=== PATIENT | female | born 1990 | race Caucasian/White ===

== ENCOUNTER 2021-01-09 07:37 | Emergency (ER) | payer MEDICAID, SELFPAY ==
[2021-01-09 07:42] VITALS: BP 146/72; PULSE 78; RESP 16; TEMP 36.1; O2SAT 98; BMI 41.8
--- NOTE | 2021-01-09 08:06 | ED.GENADULT ---
HPI - General Adult General Chief complaint: General Medical <AJ Rosales Last Filed: 01/09/21 08:08> Stated complaint: needs ring removed <AJ Rosales Last Filed: 01/09/21 08:08> Time Seen by Provider: 01/09/21 08:02 <AJ Rosales Last Filed: 01/09/21 08:08> Source: patient <AJ Rosales Last Filed: 01/09/21 08:08> Mode of arrival: ambulatory <AJ Rosales Last Filed: 01/09/21 08:08> History of Present Illness HPI narrative: 30-year-old female with a past medical history of asthma presenting to the ED c/o left middle finger swelling since this morning and inability to remove ring from finger. Denies fever, chills, numbness, tingling, weakness <AJ Rosales Last Filed: 01/09/21 08:08> Onset (ago): hour(s) <AJ Rosales Last Filed: 01/09/21 08:08> Related Data Allergies/adverse reactions: Allergies Allergy/AdvReac Type Severity Reaction Status Date / Time ENVIROMENTAL Allergy Unknown STUFFY Uncoded 05/24/20 16:16 NOSE, SNEEZING environmental Allergy Unknown Uncoded 06/27/19 00:00 shell fish Allergy Unknown Uncoded 06/27/19 00:00 SHELLFISH Allergy Unknown DIFFICULTY Uncoded 05/24/20 16:16 BREATHING <AJ Rosales Last Filed: 01/09/21 08:08> Review of Systems Review of Systems: Constitutional: No Fever, No Chills Musculoskeletal: + joint pain, No Myalgias, + Joint Swelling Skin: No Skin Lesions, No rash Neuro: No Weakness, No Numbness, No Paresthesias <AJ Rosales Last Filed: 01/09/21 08:08> Yes all other systems are reviewed and are negative <AJ Rosales Last Filed: 01/09/21 08:08> [facility] Past Medical History Attestation statement: The following information was validated with the patient. <AJ Rosales Last Filed: 01/09/21 08:08> Medical History: Medical History (Updated 01/10/21 @ 00:01 by Isamar Villanueva) Asthma delivery delivered Seasonal allergies <AJ Rosales - Last Filed: 01/09/21 08:08> Social History Social History: Social History Alcohol intake: current Alcohol intake frequency: a few times a month Alcohol type: beer Smoked in Last 30 Days: No Use of substances other than those prescribed or required for medical reasons: No Advance Directives: No Advance Directives Information Provided: No Patient : No <AJ Rosales - Last Filed: 01/09/21 08:08> Physical Exam Vital Signs: Vital Signs: Last Vital Signs Temp 97.0 F 01/09/21 07:42 Pulse 78 01/09/21 07:42 Resp 16 01/09/21 07:42 BP 146/72 H 01/09/21 07:42 Pulse Ox 98 01/09/21 07:42 Body Mass Index 41.8 <AJ Rosales - Last Filed: 01/09/21 08:08> Vital Signs: Last Vital Signs Temp 97.0 F 01/09/21 07:42 Pulse 78 01/09/21 07:42 Resp 16 01/09/21 07:42 BP 146/72 H 01/09/21 07:42 Pulse Ox 98 01/09/21 07:42 Body Mass Index 41.8 <Braulio Cartwright MD - Last Filed: 02/07/21 14:45> Const: General: cooperative and healthy appearing <AJ Rosales - Last Filed: 01/09/21 08:08> Orientation/consciousness: patient oriented x3 <AJ Rosales - Last Filed: 01/09/21 08:08> Limitations: no limitations <AJ Rosales - Last Filed: 01/09/21 08:08> HENMT: Head: Yes normal to inspection <AJ Rosales Last Filed: 01/09/21 08:08> Ears: hearing grossly normal bilaterally <AJ Rosales - Last Filed: 01/09/21 08:08> General nose exam: Normal external nose present <AJ Rosales - Last Filed: 01/09/21 08:08> Face and sinus: Yes normal facial exam <AJ Rosales - Last Filed: 01/09/21 08:08> Eyes: General: appearance normal, both eyes and all related structures <AJ Rosales Last Filed: 01/09/21 08:08> EOM: EOMs intact bilaterally <AJ Rosales - Last Filed: 01/09/21 08:08> Neck: Neck: Yes normal visual inspection <AJ Rosales - Last Filed: 01/09/21 08:08> Skin: Rashes: no rashes <AJ Rosales Last Filed: 01/09/21 08:08> Wounds: no wounds <AJ Rosales Last Filed: 01/09/21 08:08> Neuro: General: patient oriented x3 <AJ Rosales - Last Filed: 01/09/21 08:08> Extrem: Other: Ring stuck to left middle finger. Removed with ring cutter. Peripheral pulses intact, cap refill normal. FROM intact to all digits <AJ Rosales Last Filed: 01/09/21 08:08> Course Course Course Narrative: I have reviewed the chart <Braulio Cartwright MD - Last Filed: 02/07/21 14:45> Medical Decision Making MDM Narrative Medical decision making narrative: Ring removed with ring cutter <AJ Rosales Last Filed: 01/09/21 08:08> Discharge Plan Discharge Clinical Impression: Finger joint swelling <AJ Rosales Last Filed: 01/09/21 08:08> Patient Disposition: Home, Self-Care <AJ Rosales Last Filed: 01/09/21 08:08> Instructions: Swollen Joint (ED) <AJ Rosales Last Filed: 01/09/21 08:08> Additional Instructions: Take Tylenol and Motrin at home for pain/swelling Do not apply a ring to finger until swelling goes down <AJ Rosales Last Filed: 01/09/21 08:08> Referrals: Physician,None [Primary Care Provider] - 2 days <AJ Rosales Last Filed: 01/09/21 08:08> Interventions: ED Discharge Assessment Last Done: 01/09/21 08:23 <AJ Rosales Last Filed: 01/09/21 08:08> Discharge Date/Time: 01/09/21 08:24 <AJ Rosales - Last Filed: 01/09/21 08:08>
== END 2021-01-09 08:24 | disposition home or self-care (01) ==
PROVIDERS: Emergency Provider Emergency Medicine
DX: M79.645 Pain in left finger(s) (principal); M25.442 Effusion, left hand
CPT/HCPCS: 99283; 99284

== ENCOUNTER 2023-01-03 03:46 | Emergency (ER) | payer MEDICAID, SELFPAY ==
--- NOTE | ~2023-01-03 | US_ITS ---
EXAMINATION: US OBSTETRICAL ULTRASOUND CLINICAL INFORMATION: Cramping and bleeding COMPARISON: No recent imaging. TECHNIQUE: Transabdominal OB ultrasound FINDINGS: There is a single intrauterine gestational sac with visible yolk sac, embryo/fetus, and cardiac activity. Heterogeneous hypoechoic focus adjacent to the placenta measuring up to 7.8 x 1.0 x 7.7 cm suspicious for a subchorionic hemorrhage. HR: 167 beats per minute. CRL (crown rump length): 6.81 cm (13 weeks 1 day +/- 4 days). ALLY (estimated date of delivery): 07/10/2023 +/- 4 days. MATERNAL ADNEXA: The right maternal ovary not visualized The left maternal ovary not visualized There is no significant maternal adnexal mass. No maternal pelvic ascites. US/US OB <= 14 weeks fetus IMPRESSION: 1. Single intrauterine gestation with ultrasound gestational age of 13 weeks 1 day +/- 4 days. 2. Estimated date of delivery is 07/10/2023 +/- 4 days. 3. Subchorionic hemorrhage. Neither ovary visualized due to bowel gas.
[2023-01-03 03:47] VITALS: BP 159/69; PULSE 136; RESP 18; TEMP 36.5; O2SAT 98; BMI 26.6
--- NOTE | 2023-01-03 04:12 | ED_ITS ---
HPI - General Chief complaint: Vaginal Bleeding Stated complaint: Bleeding/ 13 weeks Time Seen by Provider: 01/03/23 03:56 Source: patient Mode of arrival: ambulatory Limitations: no limitations History of Present Illness HPI Narrative: Patient is an currently at 13 weeks of gestational age, comes in complaining of vaginal bleeding and abdominal cramping. Patient states that this morning, she woke up to go to the restroom, when she urinated, she noticed a significant amount of blood in her underwear. Patient was asymptomatic throughout the night, before coming to emergency room, patient started dropping. Patient states that approximately 5 months ago she had a miscarriage. Patient denies any recent illnesses. Related Data Allergies Allergy/AdvReac Type Severity Reaction Status Date / Time ENVIROMENTAL Allergy Unknown STUFFY Uncoded 05/24/20 16:16 NOSE, SNEEZING environmental Allergy Unknown Uncoded 06/27/19 00:00 shell fish Allergy Unknown Uncoded 06/27/19 00:00 SHELLFISH Allergy Unknown DIFFICULTY Uncoded 05/24/20 16:16 BREATHING Review of Systems Review of Systems: Constitutional : No Weight loss, No Fever, No Chills, No Night Sweats, No Fatigue, No Malaise ENT/Mouth : No Hearing loss, No Ear Pain, No Nasal Congestion, No Sinus Pain, No Hoarseness, No sore throat, No Rhinorrhea, No Swallowing Difficulty Eyes: No Eye Pain, No Swelling, No Redness, No Foreign Body, No Discharge, No Vision Changes Cardiovascular : No Chest Pain, No SOB, No Dyspnea on Exertion, No Orthopnea, No Edema, No Palpitations Respiratory : No Cough, No Sputum, No Wheezing, No Smoke Exposure, No Dyspnea Gastrointestinal : No Nausea, No Vomiting, No Diarrhea, No Constipation, No abdominal Pain, No Hematochezia, No Melena Genitourinary : Complaining of vaginal bleeding and cramping, No Dysuria, No Urinary Frequency, No Hematuria, No Urinary Incontinence, No Urgency, No Flank Pain, No Urinary Flow Changes, No Hesitancy Musculoskeletal : No joint pain, No Myalgias, No Joint Swelling Skin : No Skin Lesions, No rash Neuro : No Weakness, No Numbness, No Paresthesias, No Loss of Consciousness, No Dizziness, No Headache Psych : No Anxiety/Panic, No Depression, No SI/HI/AH/VH, No Social Issues, Heme/Lymph: No Bruising, No Bleeding,No Lymphadenopathy Endocrine : No Polyuria, No Polydipsia, No Temperature Intolerance [facility] Past Medical History Medical History Asthma delivery delivered Seasonal allergies Social History Social History Alcohol intake: never Smoked in Last 30 Days: No Use of substances other than those prescribed or required for medical reasons: No Advance Directives: No Advance Directives Information Provided: Yes Patient : Yes Physical Exam Vital Signs: Vital Signs: Last Vital Signs Temp 97.7 F 01/03/23 03:47 Pulse 84 01/03/23 06:00 Resp 18 01/03/23 06:00 BP 120/77 01/03/23 06:00 Pulse Ox 97 01/03/23 06:00 O2 Del Method Room Air 01/03/23 06:00 BMI result Body Mass Index 26.6 Const: Other: Appearance: Alert. Oriented X3. Very anxious Eyes: Pupils equal, round and reactive to light. ENT: Pharynx normal. Neck: Normal inspection. Neck supple. No lymph nodes noted. No crepitus CVS: Normal heart rate and rhythm. Pulses normal. Normal S1 and S2 Respiratory: No respiratory distress. Breath sounds normal. No Wheezing. No rales Abdomen: Soft and nontender. No rigidity. No distention. : There is small to moderate amount of blood in the vaginal canal. Cervical os is closed. Skin: Skin warm and dry. Normal skin color. Normal skin turgor. Extremities: No lower extremity edema. No Lacerations. No Rash Neuro: Oriented X 3. No motor deficit. No sensory deficit. Moving all extremities. No slurred speech. CN 2 through 12 grossly intact Psych: calm, cooperative, anxious, crying Course Course Course Narrative: -patient states that she had an ultrasound 5 days ago and it was normal. -of patient's labs are pending, ultrasound pending as well. Medical Decision Making Medical Decision Making [facility] Narrative: -the cervical os is closed, likely threatened . -official report from Radiology is pending. -patient's blood type is A positive, RhoGAM not indicated. -patient has a Ob Gyne, patient was provided with Dr. Bal's phone number in case she needs to have a follow-up -sign-out given to Dr. [place] Differential Diagnosis Differential Diagnoses: The differential diagnosis associated with the pre sentation includes (Miscarriage, threatened miscarriage) Lab Data 01/03/23 04:07 01/03/23 04:07 Labs: Lab Results 01/03/23 01/03/23 01/03/23 Range/Units 04:07 04:07 04:12 WBC 9.5 (4.8-10.8) X10*3/uL RBC 3.79 L (4.20-5.50) X10*6/uL Hgb 11.6 L (12.0-16.0) g/dl Hct 33.8 L (37.0-47.0) % MCV 89.2 (80.0-98.0) fL MCH 30.6 (27.0-33.0) pg MCHC 34.3 (31.0-35.0) g/dl RDW 12.1 (11.0-16.0) % Plt Count 236 (160-400) X10*3/uL MPV 9.4 (9.4-12.3) fL Immature Gran % (Auto) 0.3 (0.0-0.4) % Neut % (Auto) 62.2 (45-73) % Lymph % (Auto) 29.7 (20-40) % Tama % (Auto) 5.7 (2-11) % Eos % (Auto) 1.8 (0-4) % Baso % (Auto) 0.3 (0-2) % Lymph # (Auto) 2.8 (1.2-4.9) X10*3/uL Tama # (Auto) 0.5 (0.1-1.2) X10*3/uL Eos # (Auto) 0.2 (0.0-0.4) X10*3/uL Baso # (Auto) 0.0 (0.0-0.2) X10*3/uL Abs Immat Gran (auto) 0.03 (0.00-0.03) X10*3/uL Absolute Neuts (auto) 5.9 (2.0-8.3) x10*3/uL Absolute Nucleated RBC 0.000 (0.0-0.012) X10*3/uL Nucleated RBC % (auto) 0.0 (0.0-0.2) /100WBC Sodium 138 (135-145) mmol/L Potassium 3.7 (3.3-5.1) mmol/L Chloride 108 (96-108) mmol/L Carbon Dioxide 21 L (22-29) mmol/L Anion Gap 13 (12-20) BUN 6 L (9-16) mg/dL Creatinine 0.57 (0.5-1.4) mg/dL Estim Creat Clear Calc 158.2 Estimated GFR > 60 Random Glucose 98 (60-115) mg/dL Calcium 8.6 (8.4-10.2) mg/dL Total Bilirubin 0.5 (0.0-1.0) mg/dL Direct Bilirubin 0.2 (0.0-0.5) mg/dL AST 12 (5-31) U/L ALT 12 (0-31) U/L Alkaline Phosphatase 39 (39-117) U/L Total Protein 5.9 L (6.5-8.0) g/dL Albumin 3.7 (3.5-5.0) g/dL Beta HCG, Quant 98322 mIU/mL Blood Type A Positive Discharge Plan Discharge Clinical Impression: Threatened Patient Disposition: Home, Self-Care Instructions: Threatened Miscarriage (ED) Additional Instructions: Please follow-up with your primary care physician tomorrow. If you have any worsening or new symptoms, please return to the emergency room or call 911 Referrals: Shawn Bal MD [Physician] - Stand Alone Forms: Work/School Release
[2023-01-03 04:14] LABS: Basophils Percent Auto 0.3 % (0-2); Eosinophils Absolute Auto 0.2 X10*3/uL (0.0-0.4); Eosinophils Percent Auto 1.8 % (0-4); Hematocrit 33.8 % (37.0-47.0); Hemoglobin 11.6 g/dl (12.0-16.0); Imm Gran Abs Auto 0.03 X10*3/uL (0.00-0.03); Imm Gran Pct Auto 0.3 % (0.0-0.4); Lymphocytes Absolute Auto 2.8 X10*3/uL (1.2-4.9); Lymphocytes Percent Auto 29.7 % (20-40); MANUAL DIFF FLAG NO; Mean Corpuscular HGB Conc 34.3 g/dl (31.0-35.0); Mean Corpuscular Hemoglobin 30.6 pg (27.0-33.0); Mean Corpuscular Volume 89.2 fL (80.0-98.0); Mean Platelet Volume 9.4 fL (9.4-12.3); Monocytes Absolute Auto 0.5 X10*3/uL (0.1-1.2); Monocytes Percent Auto 5.7 % (2-11); Neutrophils Absolute Auto 5.9 x10*3/uL (2.0-8.3); Neutrophils Percent Auto 62.2 % (45-73); Platelet Count 236 X10*3/uL (160-400); Red Blood Count 3.79 X10*6/uL (4.20-5.50); Red Cell Distribution Width 12.1 % (11.0-16.0); White Blood Count 9.5 X10*3/uL (4.8-10.8)
--- OUTSIDE RECORDS SUMMARY | 2023-01-03 04:24 | XMS_ITS | Continuity of Care Document ---
Author Name Unknown Organization [facility] Alyse Gutierrez n's [facility] Address [address] [place] [address]- Care Team Providers Care Test Clerk Name Role Phone Not on Staff, PCP Primary Care Physician Unavail able Encounter [facility] Date(s): 11/05/22 - 12/05/22 [facility] [address] [place], [place] [address] Allergies, Adverse Reactions, Alerts Substance Reaction Severity Status shellfish Moderate Active Medications PNV By Mouth, Daily, 0 Refills, Maintenance, 12/01/22 9:40:00 EDT, Partial fill upon patient request ifthe prescription is for a schedule II opioid drug. Start Date: 12/01/22 Status: Ordered Problem List Condition Confirmation Course Effective Dates Status Health St [facility] Informant ADHD Confirmed Active Social History Social History Type Response Smoking Status Never (less than 100 in lifetime) entered on: 12/01/22 Sex Patient Care team information Care Team Personnel Name: Not on Staff, PCP Position: S Physician (General Medicine) Member Role: PCP Care Team Related Persons Name: ELKINHOMEROFUENTES Address: [address] [place] [address]
--- OUTSIDE RECORDS SUMMARY | 2023-01-03 04:24 | XMS_ITS | Continuity of Care Document ---
Author Name Unknown Organization [facility] Alyse amatos [facility] Address [address], [address] [place] [address]- Care Team Providers Care Development Technologist Name Role Phone Not on Staff, PCP Primary Care Physician Unavail able Encounter [facility] [place](s[place] 12/01/22 - 12/08/22 [facility] Alyse Bentons [facility] [address] [place] [address]- Attending Physician: Jackelin Gilbert MD Referring Physician: Not on Staff, Referring MD Allergies, Adverse Reactions, Alerts Substance Reaction Severity Status shellfish Moderate Active Medications PNV By Mouth, Daily, 0 Refills, Maintenance, 12/01/22 9:40:00 EDT, Partial fill upon patient request ifthe prescription is for a schedule II opioid drug. Start Date: 12/01/22 Status: Ordered Problem List Condition Confirmation Course Effective Dates Status Health St atus Informant ADHD Confirmed Active Procedures Procedure Date Related Diagnosis Body Site Status section 11/27/14 Complete d Appendectomy 2010 Completed ACL repair 09/07/06 Completed Tonsillectomy 09/07/97 Completed Vital Signs Most recent to oldest [Reference Range]: 1 Height 175.26 cm (12/01/22 9:01 AM) Social History Social History Type Response Smoking Status Never (less than 100 in lifetime) entered on: 12/01/22 Sex Patient Care team information Care Team Personnel Name: Not on Staff, PCP Position: S Physician (General Medicine) Member Role: PCP Care Team Related Persons Name: RONDA MASONHLEEN Address: home [address] [place] [address]
[2023-01-03 04:38] LABS: Alanine Aminotransferase 12 U/L (0-31); Albumin Level 3.7 g/dL (3.5-5.0); Alkaline Phosphatase 39 U/L (39-117); Anion Gap 13 (12-20); Aspartate Amino Transferase 12 U/L (5-31); Bilirubin Direct 0.2 mg/dL (0.0-0.5); Bilirubin Total 0.5 mg/dL (0.0-1.0); Blood Urea Nitrogen 6 mg/dL (9-16); Calcium 8.6 mg/dL (8.4-10.2); Carbon Dioxide 21 mmol/L (22-29); Chloride 108 mmol/L (96-108); Creatinine Clr Calc Pharmacy 158.2; Estimated Glomerular Filt Rate > 60; Glucose Random 98 mg/dL (60-115); Potassium 3.7 mmol/L (3.3-5.1); Sodium 138 mmol/L (135-145); Total Protein 5.9 g/dL (6.5-8.0)
--- NOTE | 2023-01-03 04:46 | PC.NURSE ---
Addendum entered by Edna Liang 01/03/23 04:54: Pt 02/14 pain, blood is bright red with no clots. Original Note: Pt A&Ox4, tearful, reports waking up to use the BR and nothing a lot of blood and constant cramping. IV line placed, blood work collected and sent to lab.
[2023-01-03 06:00] VITALS: BP 120/77; PULSE 84; RESP 18; O2SAT 97
--- NOTE | 2023-01-03 06:19 | PC.NURSE ---
Pt ambulated to BR independently with steady gait, Pt states there was only drops of blood when using the BR. VSS.
[2023-01-03 07:44] VITALS: BP 120/42; PULSE 84; RESP 12; TEMP 36.7; O2SAT 98
--- NOTE | 2023-01-03 07:51 | PC.NURSE ---
received pt in bed, A/O x3. Presented early this morning with vaginal bleeding and cramping at 13 weeks . Pt is now feeling better, bleeding is minimal, cramping remains. Pt awaiting results of U/S and disposition.
[2023-01-03 08:29] LABS: Appearance Urine Cloudy; Color Urine Yellow; Glucose Urine UA Negative (Negative); Leukocyte Esterase Urine Negative (Negative); Nitrite Urine Negative (Negative); UMIC TRIGGER UACC YES; Urine Blood Trace (Negative); Urine Ketones Negative (Negative); Urine Protein Negative (Neg-Trace)
[2023-01-03 08:53] LABS: Bacteria Urine None Seen (None Seen); Hyaline Casts Urine 0-2 /LPF (0-2); RBC Urine 0-2 /HPF (0-2); Squamous Epithelial Cell Urine 0-2 /HPF (0-2); WBC Urine 0-5 /HPF (0-5)
[2023-01-03 08:55] VITALS: BP 107/34; PULSE 75; RESP 12; TEMP 36.8; O2SAT 98
== END 2023-01-03 09:05 | disposition home or self-care (01) ==
PROVIDERS: Emergency Medicine; Emergency Provider Emergency Medicine; PCP Internal Medicine
DX: O20.0 Threatened abortion (principal); Z3A.13 13 weeks gestation of pregnancy
CPT/HCPCS: 36415; 76801; 80048; 80076; 81001; 84702; 85025; 86900; 86901; 99284

== ENCOUNTER 2024-09-03 09:03 | Emergency (ER) | payer MEDICAID, SELFPAY ==
--- NOTE | ~2024-09-03 | XR_ITS ---
CLINICAL HISTORY: pain, injury 3 views sacrum and coccyx Comparison: None Findings No acute fractures. No significant degenerative change. No erosions. IMPRESSION: No acute findings This document has been electronically signed by: Isaías Mendosa MD on 09/03/2024 11:23:20
--- NOTE | ~2024-09-03 | XR_ITS ---
CLINICAL HISTORY: pain, injury 3 view left shoulder Comparison: None Findings: No fractures or dislocations. No significant arthritic change. No erosions. No radiopaque foreign body. IMPRESSION: 1. No acute findings This document has been electronically signed by: Isaías Mendosa MD on 09/03/2024 11:34:01
[2024-09-03 09:09] VITALS: BP 111/65; PULSE 99; RESP 18; TEMP 36.9; O2SAT 97; BMI 45.1
--- NOTE | 2024-09-03 10:13 | ED_ITS ---
HPI - General Adult General Chief complaint: Fall Stated complaint: fall on ice, tailbone/shoulder pain Time Seen by Provider: 09/03/24 09:58 Source: patient Mode of arrival: ambulatory Limitations: no limitations History of Present Illness ED Provider: Linda Villalobos PA-C HPI narrative: Patient is a 34 year old assigned female at with no reported medical history presenting to the emergency department today with left shoulder pain and tail bone pain after a slip and fall. Patient states that she slipped and fell on the ice, injuring her left shoulder and tail bone. Patient denies any head strike or loss of consciousness with the incident. Patient denies any dizziness, lightheadedness, abdominal pain, nausea, vomiting, fever, chills, blurry vision, double vision, loss of vision, chest pain, difficulty breathing, shortness of breath, back pain, night sweats, pain with urination, increased urinary frequency, increased urinary urgency, blood in her urine or stool, syncope or a near syncopal episode, bowel incontinence, bladder incontinence, or any other complaints at this time. Relieving factors: none Exacerbating factors: none Associated symptoms: denies other symptoms Treatments prior to arrival: none Related Data Allergies Allergy/AdvReac Type Severity Reaction Status Date / Time ENVIROMENTAL Allergy Unknown STUFFY Uncoded 09/03/24 09:13 NOSE, SNEEZING environmental Allergy Unknown Unknown Uncoded 09/03/24 09:13 shell fish Allergy Unknown Unknown Uncoded 09/03/24 09:13 SHELLFISH Allergy Unknown DIFFICULTY Uncoded 09/03/24 09:13 BREATHING Review of Systems Constitutional: Constitutional: Reports no additional constitutional complaints, Denies chills, Denies fever(s) and Denies night sweats Eyes: Eyes: Reports no additional eye complaints, Denies blurry vision, Denies change in vision, Denies diplopia, Denies eye discharge, Denies loss of vision and Denies eye pain ENT: Denies dizziness Cardiovascular: Cardiovascular: Reports no additional cardiovascular complaints, Denies chest pain, Denies lightheadedness, Denies Loss of Consciousness and Denies dyspnea Respiratory: Respiratory: Reports no additional respiratory complaints and Denies dyspnea Gastrointestinal: Gastrointestinal: Reports no additional gastrointestinal co mplaints, Denies abdominal pain, Denies melena, Denies hematochezia, Denies change in bowel habits and Denies change in stool character Genitourinary: Genitourinary: Denies hematuria, Denies urinary frequency, Denies dysuria, Denies urinary incontinence, Denies urinary hesitancy and Denies urinary urgency Musculoskeletal: Musculoskeletal: Reports no additional musculoskeletal complaints, Denies numbness and Denies tingling Comments: left shoulder pain, tail bone pain Neurologic: Denies dizziness, Denies loss of vision, Denies numbness and Denies tingling Psychiatric: Psychiatric: Reports no additional psychiatric complaints Endocrine: Endocrine: Reports no additional endocrine complaints Hematologic/Lymphatic: Hematologic/Lymphatic: Reports no additional hematologic/lymphatic complaints Allergic/Immunologic: Allergic/Immunologic: Reports no additional allergic/immunologic complaints [facility] Past Medical History Attestation statement: The following information was validated with the patient. Source: old records reviewed and nursing notes reviewed Medical History delivery delivered Seasonal allergies Asthma Social History Social History Alcohol intake: never Advance Directives: No Advance Directives Information Provided: Yes Physical Exam ED Vital Signs: Vital Signs - 24 hr 09/03/24 09:09 09/03/24 11:48 Temperature 98.5 F 98.5 F Pulse Rate 99 99 Respiratory Rate 18 18 Blood Pressure 111/65 111/65 Pulse Oximetry 97 98 Oxygen Delivery Method Room Air Room Air BMI result Body Mass Index 45.1 Const General: cooperative, no acute distress, alert and awake Nutritional Appearance: well nourished Orientation/consciousness: patient oriented x3 Limitations: no limitations [facility] Head: Yes normal to inspection and Yes atraumatic Ears: hearing grossly normal bilaterally and external ears normal General nose exam: Normal external nose present, no nasal discharge noted and no epistaxis Face and sinus: Yes normal facial exam, No abrasion and No laceration Mouth: Normal oral and palatal mucosa present, no drooling and no muffled voice Eyes General: appearance normal, both eyes and all related structures Periorbital: periorbital findings normal Eyelids: Yes eyelids normal Conjunctivae: conjunctivae normal Pupils: Equal, round and reactive pupils present EOM: EOMs intact bilaterally Neck Neck: Yes normal visual inspection, Yes full ROM and Yes no lymphadenopathy Chest Chest palpation & inspection: normal inspection of the chest Resp Effort & Inspection: normal respiratory effort and able to speak in complete sentences GI Inspection: Yes normal to inspection Neuro General: patient oriented x3 and moves all extremities Cranial nerves: Yes Equal, round and reactive pupils present Cognition (Neuro): normal cognition Extrem Other: ROM of the left shoulder slightly reduced secondary to pain General: Yes normal to inspection and Yes capillary refill normal Psych Appearance: grossly normal Mental Status: mental status grossly normal Affect: normal affect Attitude: cooperative Thought process: Normal thought process present Thought content: Normal thought content present Insight: Good insight present (Psych) Medications Administered Discontinued Medications Generic Name Dose Route Start Last Admin Trade Name Ruth PRN Reason Stop Dose Admin Ketorolac Tromethamine 15 mg 09/03/24 10:55 09/03/24 11:30 Ketorolac Tromethamine 15 Mg/Ml Vial IM 09/03/24 10:56 15 mg ONCE ONE Administration Medical Decision Making Medical Decision Making [facility] Narrative: Patient is a 34 year old assigned female at with no reported medical history presenting to the emergency department today with left shoulder pain and tail bone pain after a slip and fall. Patient's physical exam was as noted in the physical exam portion of this note. Patient's left shoulder and coccyx / sacrum x-rays showed no acute process. I explained my physical exam findings as well as all test results to the patient. I answered all questions asked by the patient. I stressed the importance of the patient taking her medication as directed (either prescribed or as the over the counter packaging recommends). I stressed the importance of the patient following up with her primary care provider. I stressed the importance of the patient returning to the emergency department immediately if her symptoms were to worsen or if she were to develop any dizziness, shortness of breath, difficulty breathing, chest pain, blurry vision, loss of vision, nausea, vomiting, abdominal pain, fever, chills, back pain, or any other complaints. Patient verbalized agreement and understanding with this treatment plan and discharge. Differential Diagnosis Differential Diagnoses: The differential diagnosis associated with the presentation includes Fall Shoulder sprain Shoulder strain Tailbone contusion Coccyx contusion Admission/Observation Consideration of admission/observation: Escalation of care including admission/observation considered Patient would have been admitted to the hospital had her work up had any findings where hospital admission was appropriate and her clinical presentation warranted hospital admission. Independent Interpretation I performed an independent interpretation of an: Plain X-Ray Interpretation: My interpretation is in agreement with the radiologist's impression of these imaging studies. CLINICAL HISTORY: pain, injury 3 view left shoulder Comparison: None Findings: No fractures or dislocations. No significant arthritic change. No erosions. No radiopaque foreign body. IMPRESSION: 1. No acute findings This document has been electronically signed by: Isaías Mendosa MD on 09/03/2024 11:34:01 Dictated By: Isaías Mendosa MD Signed By: Electronically signed by Isaías Mendosa MD 09/03/24 1135 CLINICAL HISTORY: pain, injury 3 views sacrum and coccyx Comparison: None Findings No acute fractures. No significant degenerative change. No erosions. IMPRESSION: No acute findings This document has been electronically signed by: Isaías Mendosa MD on 09/03/2024 11:23:20 Dictated By: Isaías Mendosa MD Signed By: Electronically signed by Isaías Mendosa MD 09/03/24 1123 Radiology Impression Discussion of test interpretation with radiology: I have reviewed the radiologist's reading. Discharge Plan Discharge Clinical Impression: Fall, Acute shoulder pain, Acute coccygeal pain Patient Disposition: Home, Self-Care Instructions: Fall Prevention (ED), Shoulder Pain (ED) Additional Instructions: Follow up with your primary care provider. Return to the emergency department immediately if your symptoms worsen or if you develop any dizziness, shortness of breath, difficulty breathing, chest pain, blurry vision, loss of vision, nausea, vomiting, abdominal pain, fever, chills, back pain, or any other complaints. Referrals: [facility] [place] [facility]] (Call to establish and follow up with a primary care provider. If you already have a primary care provider, please follow up with them.) [facility] [[facility]] (Call to establish and follow up with a primary care provider. If you already have a primary care provider, please follow up with them.) [facility] [Provider Group] (Call to establish and follow up with a primary care provider. If you already have a primary care provider, please follow up with them.) Stand Alone Forms: Work/School Release Interventions: ED Discharge Assessment Last Done: 09/03/24 11:48 Discharge Date/Time: 09/03/24 11:49 Print Language: Czech
[2024-09-03] MEDS: Ketorolac Tromethamine 15 MG/ML VIAL IM (11:30)
[2024-09-03 11:48] VITALS: BP 111/65; PULSE 99; RESP 18; TEMP 36.9; O2SAT 98
== END 2024-09-03 11:49 | disposition home or self-care (01) ==
PROVIDERS: Emergency Provider Emergency Medicine
DX: M25.512 Pain in left shoulder (principal); S39.92XA Unspecified injury of lower back, initial encounter; W00.0XXA Fall on same level due to ice and snow, initial encounter; Y93.89 Activity, other specified; Y92.018 Other place in single-family (private) house as the place of occurrence of the external cause; Y99.9 Unspecified external cause status
CPT/HCPCS: 72220; 73030; 96372; 99283; 99284; J1885

== ENCOUNTER → 2024-09-03 09:58 | Outpatient (BNV) | payer MEDICAID, SELFPAY | PROVIDERS: Emergency Provider Emergency Medicine; Visit Provider Radiology Diagnostic Radiology | DX: M25.512 Pain in left shoulder (principal); M53.3 Sacrococcygeal disorders, not elsewhere classified | CPT/HCPCS: 72220; 73030 ==